=== PATIENT | female | born 1985 | race Caucasian/White ===

== ENCOUNTER 2021-12-02 20:00 | Inpatient (IN) | payer BC ==
[~2021-12-02] VITALS: Ht 167.6 cm; Wt 55.3 kg
[2021-12-03 01:25] LABS: BASOPHILS % (AUTO) 0.9 % (0.0-2.0); EOSINOPHILS % (AUTO) 2.4 % (1.0-6.0); HEMATOCRIT 40.5 % (36-46); HEMOGLOBIN 12.8 g/dL (12.0-16.0); LYMPHOCYTES # (AUTO) 2.9 K/uL (1.0-4.8); LYMPHOCYTES % (AUTO) 39.1 % (22.0-44.0); MEAN CORPUSCULAR HEMOGLOBIN 29.5 pg (26.0-34.0); MEAN CORPUSCULAR HGB CONC 31.7 G/dL (31.0-37.0); MEAN CORPUSCULAR VOLUME 93 fL (80-100); MONOCYTES # (AUTO) 0.7 K/uL (0.1-1.0); MONOCYTES % (AUTO) 8.7 % (2.0-9.0); NEUTROPHILS # (AUTO) 3.7 K/uL (1.8-7.7); NEUTROPHILS % (AUTO) 48.9 % (40.0-70.0); PLATELET COUNT (AUTO) 383 K/uL (150-450); RED BLOOD CELL COUNT(AUTO) 4.35 MIL/uL (4.00-5.20); RED CELL DISTRIBUTION WIDTH 13.6 % (11.5-14.5)
[2021-12-03 01:37] LABS: ANION GAP 3 mmol/L (8-16); CALCIUM, TOTAL 8.9 mg/dL (8.8-10.5); CARBON DIOXIDE 33 mmol/L (22-29); CHLORIDE 101 mmol/L (98-107); CREATININE 0.71 mg/dL (0.60-1.30); GLOMERULAR FILTR. RATE CALC > 60 mL/min (>60); GLUCOSE,RANDOM 81 mg/dL (70-110); SODIUM SERUM 137 mmol/L (136-145); UREA NITROGEN, BLOOD 9 mg/dL (7-18)
[2021-12-03 01:40] LABS: COVID AG,FIA SOURCE NASOPHARYNGEAL
[2021-12-03 01:42] LABS: ALANINE AMINOTRANSFERASE 21 U/L (12-78); ALBUMIN 3.6 g/dL (3.4-5.0); ALKALINE PHOSPHATASE 61 U/L (46-116); ASPARTATE AMINOTRANSFERASE 24 U/L (15-37); BILIRUBIN,TOTAL 0.4 mg/dL (0.1-1.0); TOTAL PROTEIN, SERUM 6.8 g/dL (6.4-8.2)
[2021-12-03] MEDS ORDERED: HALOPERIDOL 5 MG TABLET PO PRN (02:30)
[2021-12-03] MEDS ORDERED: ZOLPIDEM TARTRATE 10 MG TABLET PO PRN (02:30)
[2021-12-03 03:44] VITALS: BP 140/91
[2021-12-03] MEDS: METHADONE HCL 10 MG/5 ML SOLUTION ORAL.SYG PO SCH (10:34)
[2021-12-03 11:39] VITALS: BP 121/72
[2021-12-03] MEDS ORDERED: LOPERAMIDE HCL 2 MG CAPSULE PO PRN (14:15)
[2021-12-03] MEDS ORDERED: DOCUSATE SODIUM 100 MG CAPSULE PO PRN (14:15)
[2021-12-03] MEDS ORDERED: GuaiFENesin/D-METHORPHAN [SUGAR-FREE] 200-20MG/10 ML SYRUP UDCUP PO PRN (14:15)
[2021-12-03] MEDS ORDERED: ONDANSETRON HCL 4 MG TABLET PO PRN (14:15)
[2021-12-03] MEDS ORDERED: MAGNESIUM HYDROXIDE SUSPENSION 30 ML UDCUP PO PRN (14:15)
[2021-12-03] MEDS ORDERED: CloNIDine HCL 0.1 MG TABLET PO PRN (14:15)
[2021-12-03] MEDS ORDERED: PETROLATUM,WHITE 28 GM JELLY TP PRN (14:15)
[2021-12-03] MEDS ORDERED: ALBUTEROL SULFATE HFA 90 MCG/PUFF 8 GM INHALER IH PRN (14:15)
[2021-12-03] MEDS ORDERED: NICOTINE 14 MG/24 HOUR PATCH TD PRN (14:15)
[2021-12-03] MEDS ORDERED: ACETAMINOPHEN 325 MG TABLET PO PRN (14:15)
[2021-12-03] MEDS ORDERED: MAG HYDROX/AL HYDROX/SIMETH ES 30 ML SUSPENSION UDCUP PO PRN (14:15)
[2021-12-03 16:15] VITALS: BP 92/61
[2021-12-03 18:15] VITALS: BP 133/81
[2021-12-03] MEDS: SUMAtriptan SUCCINATE 25 MG TABLET PO PRN (18:17)
[2021-12-04 00:15] VITALS: BP 147/68
[2021-12-04] MEDS: LORazepam 2 MG TABLET PO PRN ×2 (00:15→10:28)
[2021-12-04 08:30] VITALS: BP 110/66
[2021-12-04] MEDS: METHADONE HCL 10 MG/5 ML SOLUTION ORAL.SYG PO SCH (10:26)
[2021-12-04 16:37] VITALS: BP 115/67
[2021-12-05 08:00] VITALS: BP 116/62
[2021-12-05] MEDS: METHADONE HCL 10 MG/5 ML SOLUTION ORAL.SYG PO SCH (08:32)
[2021-12-05 16:48] VITALS: BP 120/76
[2021-12-06 03:39] VITALS: BP 157/91
[2021-12-06] MEDS: SUMAtriptan SUCCINATE 25 MG TABLET PO PRN (03:39)
[2021-12-06] MEDS: METHADONE HCL 10 MG/5 ML SOLUTION ORAL.SYG PO SCH (08:26)
[2021-12-06] MEDS: MULTIVITAMINS WITH MINERALS, THERAPEUTIC TABLET PO SCH (08:26)
[2021-12-06 09:00] VITALS: BP 150/96
[2021-12-06] MEDS: LORazepam 2 MG TABLET PO PRN (13:00)
[2021-12-07] MEDS: LORazepam 2 MG TABLET PO PRN ×2 (05:42→23:07)
[2021-12-07 08:08] VITALS: BP 107/81
[2021-12-07] MEDS: METHADONE HCL 10 MG TABLET PO SCH (09:39)
[2021-12-07] MEDS: MULTIVITAMINS WITH MINERALS, THERAPEUTIC TABLET PO SCH (09:39)
[2021-12-07 16:09] VITALS: BP 111/76
[2021-12-07 23:07] VITALS: BP 115/80
[2021-12-08] MEDS: MULTIVITAMINS WITH MINERALS, THERAPEUTIC TABLET PO SCH (08:55)
[2021-12-08] MEDS: METHADONE HCL 10 MG TABLET PO SCH (08:55)
[2021-12-08 09:01] VITALS: BP 122/75
[2021-12-08] MEDS: LORazepam 2 MG TABLET PO PRN (13:48)
[2021-12-08] MEDS ORDERED: METH5SOL3 PO (15:31)
[2021-12-08 16:28] VITALS: BP 105/72
== END 2021-12-08 18:15 | disposition home or self-care (01) | DRG 885 ==
LOC: EMS 20:01 → 3EI 12-03 02:44
PROVIDERS: ADMIT Psychiatry & Neurology Child & Adolescent Psychiatry; ATTEND Psychiatry & Neurology Child & Adolescent Psychiatry
DX: F33.2 Major depressive disorder, recurrent severe without psychotic features (principal); F11.20 Opioid dependence, uncomplicated; E46 Unspecified protein-calorie malnutrition; R45.851 Suicidal ideations; Z68.1 Body mass index [BMI] 19.9 or less, adult; F41.9 Anxiety disorder, unspecified; Z20.822 Contact with and (suspected) exposure to COVID-19; I95.9 Hypotension, unspecified; Z59.00 Homelessness unspecified; Z79.899 Other long term (current) drug therapy; Z88.8 Allergy status to other drugs, medicaments and biological substances
CPT/HCPCS: 80053; 84703; 85025; 99285; G0480; Q0162